=== PATIENT | female | born 1950 | race Hispanic/Latino ===

== ENCOUNTER 2018-04-14 16:24 | Emergency (ER) | payer MEDICARE ==
--- NOTE | 2018-04-14 16:29 | Emergency Department Report ---
Chief Complaint: Upper Respiratory Infection Stated Complaint: COUGHING/MEDICATION REFILL - HPI History of Present Illness: here w her caregiver cc cough for couple weeks no fever pmh p schizo rx off meds -see caregiver pcp Norma cig none etoh none drugs none vss nad MSE COMPLETED NO LIFE THREAT MSE screening note: Focused history and physical exam performed. Due to findings the following was ordered: ED Disposition for MSE Condition: Stable
[2018-04-14 16:36] VITALS: BP 110/90
--- NOTE | 2018-04-14 17:02 | XRay Report ---
FINAL REPORT EXAM: XR CHEST ROUTINE 2V HISTORY: COUGH TECHNIQUE: Frontal and lateral chest radiographs. PRIORS: None. FINDINGS: The cardiomediastinal silhouette is normal. No focal consolidation. The lungs are hyperinflated. No pleural effusion. No pneumothorax. No acute osseous abnormality. IMPRESSION: No acute cardiopulmonary process. Hyperinflated lungs can be seen in COPD.
--- NOTE | 2018-04-14 17:58 | Emergency Department Report ---
HPI - General Chief Complaint: Upper Respiratory Infection Time Seen by Provider: 04/14/18 16:30 - HPI HPI: This is a 67-year-old female here with her caregiver reports patient has cough 3 weeks and shortness of breath. Patient has a history of paranoid schizophrenia but no other problems. Patient denies any pain and she denies any chest pain at present. She denies any shortness of breath at present. No fever or chills or nausea or vomiting. She reports she has a runny nose with cough and a sore throat night. Caregiver also reports the patient refuses to go to psychiatrist and she is going to get away to make her go but she ran out of her medication for paranoid schizophrenia which include Cogentin, Haldol, olanzapine and called on that injection once a month. Patient denies visual or auditory hallucination. Denies suicide ideation. Denies any headache, abdominal pain or back pain. Denies any urinary burning, frequency or urgency ED Past Medical Hx - Past Medical History Previous Medical History?: Yes Hx Psychiatric Treatment: Yes (Paranoid schizophrenia) - Surgical History Past Surgical History?: No - Family History Family history: no significant - Social History Smoking Status: Unknown if ever smoked Substance Use Type: None - Medications Home Medications: Home Medications Medication Instructions Recorded Confirmed Last Taken Type Azithromycin [Zithromax Z-EUGENE] 250 mg PO DAILY 5 Days #1 pkg 04/14/18 Unknown Rx Benztropine [Cogentin] 0.5 mg PO BID 30 Days #60 tab 04/14/18 Unknown Rx Cetirizine HCl [ZyrTEC] 10 mg PO QAM 14 Days #14 capsule 04/14/18 Unknown Rx Fluticasone [Flonase] 1 spray NS QDAY 14 Days #1 bottle 04/14/18 Unknown Rx Haloperidol [Haldol] 10 mg PO QDAY 30 Days #60 tablet 04/14/18 Unknown Rx OLANZapine [Zyprexa] 15 mg PO QDAY 30 Days #30 tablet 04/14/18 Unknown Rx guaiFENesin/DEXTROMETHORPHAN 10 ml PO Q8H 5 Days #150 liquid 04/14/18 Unknown Rx [Robitussin Cough-Chest Dm Liq] ED Review of Systems ROS: Stated complaint: COUGHING/MEDICATION REFILL Other details as noted in HPI Constitutional: denies: chills, fever Eyes: denies: eye discharge ENT: congestion. denies: ear pain, throat pain Respiratory: cough. denies: shortness of breath, SOB with exertion, SOB at rest, stridor, wheezing Cardiovascular: denies: chest pain, palpitations, edema, syncope Gastrointestinal: denies: abdominal pain, nausea, vomiting Genitourinary: denies: urgency, dysuria, frequency, hematuria Musculoskeletal: denies: back pain, joint swelling, arthralgia, myalgia Skin: denies: rash Neurological: denies: headache, weakness, abnormal gait, vertigo Physical Exam - Physical Exam Vital Signs: Vital Signs 04/14/18 16:33 Temperature 98.1 F Pulse Rate 102 H Respiratory 16 Rate Blood Pressure 110/90 O2 Sat by Pulse 90 Oximetry General: This is a 67-year-old female here in no acute distress. Patient is nontoxic in appearance. Her BMI is 15.9 because caregivers that she is a vegetarian and although she eats a lot she is also very active. Physical Exam: Head: Normocephalic atraumatic Ears:BIateral TM congested without erythema and loss of bony landmarks. Hubert EAC with normal exam. No mastoid bone tenderness. Mouth: Moist, no pharyngeal erythema or exudate . . UVULA midline and oral airways patent. No peritonsillar abscess Neck: Nontender to palpate, supple, normal range of motion. No adenopathy. No c- spine tenderness. Nose: Bilateral nasal mucosa congested/erythema with clear drainage. Maxillary and frontal sinuses non-tender to palpate. Eyes: Bilateral Sclerae and conjunctiva without injection. Bilateral pupils equal and reactive to light. Bilateral lids are normal. Normal accommodation.BEOMI Lungs: Clear to auscultate bilaterally, no rhonchi wheezes or rales. Normal work of breathing and no chest wall tenderness. Dry cough CV: S1, S2. Regular rate and rhythm negative murmur. Capillary refill is less than 3 seconds Abdomen: Nontender to palpation in all quadrants: No guarding or rebound tenderness. Positive bowel sounds in all quadrants. No CVA tenderness Extremity: No clubbing, cyanosis or edema. +2 pulses in all extremities and no neurovascular compromise Skin: Clean dry and intact, no rashes or lesions Psych: Normal mood and behavior ED Course Vital Signs 04/14/18 16:33 Temperature 98.1 F Pulse Rate 102 H Respiratory 16 Rate Blood Pressure 110/90 O2 Sat by Pulse 90 Oximetry - Reevaluation(s) Reevaluation #1: 04/14/18 18:40 Patient is refusing lab work and emergency room which was ordered in triage. She did have chest x-ray which shows no acute findings. She remained stable throughout ED stay ED Medical Decision Making - Radiology Data Radiology results: report reviewed X-ray 2 view chest dictated by radiologist and report reviewed by myself in no acute findings. Findings [facility] [address] [place] [address] XRay Report Signed Patient: AME LAYTON MR#: [id number] : 1950 Acct:[id number] Age/Sex: 67 / F ADM Date: 04/14/18 Loc: ED Attending Dr: Ordering Physician: ABBY MULLER Date of Service: 04/14/18 Procedure(s): XR chest routine 2V Accession Number(s): [id number] cc: ABBY MULLER Fluoro Time In Minutes: FINAL REPORT EXAM: XR CHEST ROUTINE 2V HISTORY: COUGH TECHNIQUE: Frontal and lateral chest radiographs. PRIORS: None. FINDINGS: The cardiomediastinal silhouette is normal. No focal consolidation. The lungs are hyperinflated. No pleural effusion. No pneumothorax. No acute osseous abnormality. IMPRESSION: No acute cardiopulmonary process. Hyperinflated lungs can be seen in COPD. Transcribed By: MG Dictated By: CANDE FLORES MD Electronically Authenticated By: CANDE FLORES MD Signed Date/Time: 04/14/181701 DD/ 00 TD/TT: 04/14/181700 - Medical Decision Making This is a 67-year-old female here with caregiver and complain of cold symptoms over the last 3 weeks. She had chest x-ray 2 views which was negative. This was dictated by radiologist and report reviewed by myself. Patient also had lab work ordered which she refused. Caregiver's request inpatient psych meds be restarted as she does not have a psychiatrist or a now because she had refused to go to the last 1 and she is out of her medication. I discussed with her that I can cover her medication but I cannot do the Haldol DAC injection. They voice understanding. Patient vital signs are stable she is afebrile but she continues to refuse blood work. Patient will be given prescription for Z-Eugene, Zyrtec, Flonase, Cogentin, Haldol and olanzapine. I discussed a caregiver that they need to set up appointment for patient to go to [facility] as she needs to see psychiatry regularly for her schizophrenia. They voice understanding - Differential Diagnosis PNA, bronchitis, upper respiratory with cough and congestion Critical care attestation.: If time is entered above; I have spent that time in minutes in the direct care of this critically ill patient, excluding procedure time. ED Disposition Clinical Impression: Medication refill, Upper respiratory infection with cough and congestion Disposition: DC-01 TO HOME OR SELFCARE Is pt being admited?: No Does the pt Need Aspirin: No Condition: Stable Instructions: Upper Respiratory Infection (ED), Acute Cough (ED), Schizophrenia (ED) Additional Instructions: Please follow up at [facility] clinic for management of schizophrenia and medication He will need to take recent to primary care for follow-up for upper respiratory symptoms in about 3-5 days Have patient increase her fluid intake If patient condition worsens, return to the emergency room Referrals: BRICE ACEVEDO MD [Primary Care Provider] - 3-[address] [facility] [Outside] - 04/18/18 Forms: Accompanied Note
== END 2018-04-14 19:08 | disposition home or self-care (01) ==
LOC: ED 16:24
DX: J06.9 Acute upper respiratory infection, unspecified (principal); Z76.0 Encounter for issue of repeat prescription; F20.0 Paranoid schizophrenia
CPT/HCPCS: 71046; 99283